=== PATIENT | male | born 1985 | race African-American/Black ===

== ENCOUNTER 2017-06-16 14:41 | Emergency (ER) | payer OTHER ==
[~2017-06-16] VITALS: Ht 175.3 cm; Wt 86.2 kg
--- NOTE | ~2017-06-16 | EKG ---
PATIENT: JESSIKA DUBON UNIT #: [id number] Ventricular Rate: 67 BPM Atrial Rate: 67 BPM P-R Interval: 164 ms QRS Duration: 88 ms Q-T Interval: 398 ms QTC Calculation(Bezet): 420 ms P [place]: 49 degrees Calculated R [place]: 30 degrees Calculated T [place]: 23 degrees Diagnosis Line: Normal sinus rhythm Diagnosis Line: Possible Left atrial enlargement Diagnosis Line: Borderline ECG Diagnosis Line: When compared with ECG of 17-JAN-2010 03:02, Diagnosis Line: No significant change was found Diagnosis Line: Confirmed by ANDRA GUSMAN MD ([id number]) on Diagnosis Line: 06/16/2017 5:45:22 PM INTERPRETING MD: NASEEM JIMENEZ
[~2017-06-16 14:41] MED LIST: ANTIVERT PO; CIPRO PO; CLARITIN10 MG PO; DARVOCET-N 1001 TAB PO; DOXYCYCLINE PO; IBUPROFEN PO; PHENERGAN PO; PYRIDIUM PO; TAGAMET PO
== END 2017-06-16 16:20 | disposition home or self-care (01) ==
LOC: CED 14:41
DX: F41.0 Panic disorder [episodic paroxysmal anxiety] (principal); I10 Essential (primary) hypertension; Z90.49 Acquired absence of other specified parts of digestive tract; Z79.899 Other long term (current) drug therapy; Z88.2 Allergy status to sulfonamides
CPT/HCPCS: 93005; 96372; 99283; J2060